=== PATIENT | female | born 1945 | race Caucasian/White ===

== ENCOUNTER → 2016-05-16 | Outpatient (CLI) | payer MEDICARE, MEDICAID ==
[~2016-05-16] MED LIST: ALBU6.7H IH; ASPI81TA42 PO; CALC1TAB93 PO; DICL25 PO; ESCI10TA PO; GABA-529 PO; GLIP2.5ER PO; LISI-662 PO; MOME17N NASAL; MONT10TA21 PO; OMEG1CAP12 PO; OMEP20 PO; PRAV40 PO; TRAM50TA4 PO
[2016-05-16 12:57] LABS: BASOPHILS % (AUTO) 0.5 % (0.0-2.0); EOSINOPHILS % (AUTO) 2.4 % (1.0-6.0); HEMATOCRIT 37.5 % (36-46); HEMOGLOBIN 12.2 g/dL (12.0-16.0); LYMPHOCYTES % (AUTO) 26.2 % (22.0-44.0); MEAN CORPUSCULAR HEMOGLOBIN 27.4 pg (26.0-34.0); MEAN CORPUSCULAR HGB CONC 32.6 G/dL (31.0-37.0); MEAN CORPUSCULAR VOLUME 84 fL (80-100); MONOCYTES # (AUTO) 0.6 K/uL (0.1-1.0); MONOCYTES % (AUTO) 8.2 % (2.0-9.0); NEUTROPHILS # (AUTO) 4.8 K/uL (1.8-7.7); NEUTROPHILS % (AUTO) 62.7 % (40.0-70.0); PLATELET COUNT (AUTO) 229 K/uL (150-450); RED BLOOD CELL COUNT(AUTO) 4.45 MIL/uL (4.00-5.20); WHITE BLOOD COUNT (AUTO) 7.6 K/uL (4.5-11.0)
[2016-05-16 13:07] LABS: HEMOGLOBIN A1C 6.3 % (4.5-6.2)
[2016-05-16 13:08] LABS: ALBUMIN 3.7 g/dL (3.4-5.0); BILIRUBIN,TOTAL 0.3 mg/dL (0.1-1.0); CALCIUM, TOTAL 9.5 mg/dL (8.8-10.5); CHOL/HDL RATIO 4.9 (3.9-5.7); CREATININE 0.92 mg/dL (0.60-1.30); POTASSIUM 4.4 mmol/L (3.5-5.1); TOTAL PROTEIN, SERUM 7.6 g/dL (6.4-8.2)
== END | disposition home or self-care (01) ==
LOC: LABPV 09:37
PROVIDERS: ATTEND Family Medicine
DX: E11.40 Type 2 diabetes mellitus with diabetic neuropathy, unspecified (principal); I10 Essential (primary) hypertension; D50.8 Other iron deficiency anemias; E78.4 Other hyperlipidemia
CPT/HCPCS: 82306; 83036

== ENCOUNTER → 2016-09-21 | Outpatient (CLI) | payer MEDICARE, MEDICAID | END | disposition home or self-care (01) | LOC: RADPV 10:23 | PROVIDERS: ATTEND Family Medicine | DX: G89.29 Other chronic pain (principal); I70.0 Atherosclerosis of aorta; R07.89 Other chest pain; S22.41XD Multiple fractures of ribs, right side, subsequent encounter for fracture with routine healing; X58.XXXD Exposure to other specified factors, subsequent encounter | CPT/HCPCS: 71101 ==

== ENCOUNTER → 2016-12-07 | Outpatient (CLI) | payer MEDICARE, MEDICAID | END | disposition home or self-care (01) | LOC: RADPV 14:30 | PROVIDERS: ATTEND Orthopaedic Surgery | DX: M17.0 Bilateral primary osteoarthritis of knee (principal); M25.861 Other specified joint disorders, right knee; M11.262 Other chondrocalcinosis, left knee; M11.261 Other chondrocalcinosis, right knee ==

== ENCOUNTER → 2017-03-09 | Outpatient (CLI) | payer MEDICARE, MEDICAID ==
[~2017-03-09] MED LIST changes: -PRAV40 PO; +PRAV40TA4 PO
[2017-03-09 10:03] LABS: BASOPHILS % (AUTO) 0.3 % (0.0-2.0); EOSINOPHILS % (AUTO) 1.9 % (1.0-6.0); HEMATOCRIT 40.3 % (36-46); LYMPHOCYTES # (AUTO) 1.6 K/uL (1.0-4.8); LYMPHOCYTES % (AUTO) 22.7 % (22.0-44.0); MEAN CORPUSCULAR HEMOGLOBIN 30.5 pg (26.0-34.0); MEAN CORPUSCULAR HGB CONC 34.7 G/dL (31.0-37.0); MEAN CORPUSCULAR VOLUME 88 fL (80-100); MONOCYTES # (AUTO) 0.6 K/uL (0.1-1.0); MONOCYTES % (AUTO) 8.1 % (2.0-9.0); NEUTROPHILS # (AUTO) 4.8 K/uL (1.8-7.7); PLATELET COUNT (AUTO) 235 K/uL (150-450); RED BLOOD CELL COUNT(AUTO) 4.58 MIL/uL (4.00-5.20); RED CELL DISTRIBUTION WIDTH 13.2 % (11.5-14.5); WHITE BLOOD COUNT (AUTO) 7.1 K/uL (4.5-11.0)
[2017-03-09 10:16] LABS: HEMOGLOBIN A1C 7.2 % (4.5-6.2)
[2017-03-09 10:36] LABS: ALBUMIN 3.8 g/dL (3.4-5.0); BILIRUBIN,TOTAL 0.5 mg/dL (0.1-1.0); CHOL/HDL RATIO 4.9 (3.9-5.7); POTASSIUM 4.3 mmol/L (3.5-5.1); TOTAL PROTEIN, SERUM 7.6 g/dL (6.4-8.2)
[2017-03-09 10:46] LABS: CREATININE 1.11 mg/dL (0.60-1.30)
[2017-03-10 15:45] LABS: CREATININE, URINE (mALB) 137.8 mg/dL (Not Estab.)
== END | disposition home or self-care (01) ==
LOC: LABPV 08:27
PROVIDERS: ATTEND Family Medicine
DX: I10 Essential (primary) hypertension (principal); E11.9 Type 2 diabetes mellitus without complications; E78.4 Other hyperlipidemia
CPT/HCPCS: 82043; 82570; 83036

== ENCOUNTER → 2017-10-31 | Outpatient (CLI) | payer MEDICARE, MEDICAID ==
[2017-10-31 11:46] LABS: BASOPHILS % (AUTO) 0.7 % (0.0-2.0); EOSINOPHILS % (AUTO) 3.3 % (1.0-6.0); HEMATOCRIT 40.7 % (36-46); HEMOGLOBIN 14.3 g/dL (12.0-16.0); LYMPHOCYTES # (AUTO) 1.9 K/uL (1.0-4.8); LYMPHOCYTES % (AUTO) 26.8 % (22.0-44.0); MEAN CORPUSCULAR HEMOGLOBIN 30.9 pg (26.0-34.0); MEAN CORPUSCULAR HGB CONC 35.2 G/dL (31.0-37.0); MEAN CORPUSCULAR VOLUME 88 fL (80-100); MONOCYTES # (AUTO) 0.7 K/uL (0.1-1.0); MONOCYTES % (AUTO) 10.2 % (2.0-9.0); NEUTROPHILS # (AUTO) 4.2 K/uL (1.8-7.7); PLATELET COUNT (AUTO) 207 K/uL (150-450); RED BLOOD CELL COUNT(AUTO) 4.62 MIL/uL (4.00-5.20); RED CELL DISTRIBUTION WIDTH 12.9 % (11.5-14.5)
[2017-10-31 11:56] LABS: ALBUMIN 3.8 g/dL (3.4-5.0); CALCIUM, TOTAL 9.6 mg/dL (8.8-10.5); CREATININE 1.01 mg/dL (0.60-1.30); MAGNESIUM 1.9 mg/dL (1.80-2.40); PHOSPHORUS 3.1 mg/dL (2.5-4.9); POTASSIUM 3.9 mmol/L (3.5-5.1)
[2017-10-31 12:09] LABS: APPEARANCE,URINE CLOUDY (CLEAR); BILIRUBIN,URINE NEGATIVE (NEGATIVE); GLUCOSE, URINE (UA) NEGATIVE (NEGATIVE); KETONES,URINE NEGATIVE (NEGATIVE); LEUKOCYTE ESTERASE ,URINE MODERATE (NEGATIVE); NITRATE,URINE NEGATIVE (NEGATIVE); OCCULT BLOOD,URINE NEGATIVE (NEGATIVE); PROTEIN,URINE NEGATIVE (NEGATIVE); UROBILINOGEN,URINE 0.2 mg/dL (<=1.0)
[2017-10-31 12:40] LABS: BACTERIA,URINE None Seen /HPF (None Seen); RBC,URINE None Seen /HPF (0-2); SQUAMOUS EPITHELIAL CELL,UR Moderate /LPF (None Seen)
[2017-10-31 12:44] LABS: HEMOGLOBIN A1C 6.9 % (4.5-6.2)
== END | disposition home or self-care (01) ==
LOC: LABPV 09:51
PROVIDERS: ATTEND Internal Medicine Nephrology
DX: I10 Essential (primary) hypertension (principal); E11.9 Type 2 diabetes mellitus without complications; M19.90 Unspecified osteoarthritis, unspecified site; D63.1 Anemia in chronic kidney disease; M81.0 Age-related osteoporosis without current pathological fracture; J45.909 Unspecified asthma, uncomplicated; Z79.899 Other long term (current) drug therapy
CPT/HCPCS: 82043; 82570; 83036; 83735; 87086

== ENCOUNTER → 2018-03-11 | Outpatient (CLI) | payer MEDICARE, MEDICAID | END | disposition home or self-care (01) | LOC: RADPV 15:22 | PROVIDERS: ATTEND Family Medicine | DX: M47.812 Spondylosis without myelopathy or radiculopathy, cervical region (principal) | CPT/HCPCS: 72040 ==

== ENCOUNTER 2018-09-26 14:57 | Emergency (ER) | payer MEDICARE, MEDICAID ==
[~2018-09-26] VITALS: Ht 157.5 cm; Wt 85.5 kg
[~2018-09-26 14:57] MED LIST changes: +ASPI81TA40 PO; -ASPI81TA42 PO
[2018-09-26 15:09] LABS: GLUCOSE,POINT OF CARE 168 MG/DL (70-110)
[2018-09-26] MEDS ORDERED: HYDR25TA PO (15:19)
[2018-09-26] MEDS ORDERED: GABA-531 PO (15:19)
[2018-09-26] MEDS ORDERED: HYAL1CAP PO (15:19)
[2018-09-26] MEDS ORDERED: SIMV-260 PO (15:19)
[2018-09-26] MEDS ORDERED: LORA10TA7 PO (15:19)
[2018-09-26] MEDS ORDERED: PANT40TA25 PO (15:19)
[2018-09-26] MEDS ORDERED: METF-960 PO (15:19)
[2018-09-26] MEDS ORDERED: ACET-66 PO (15:19)
[2018-09-26] MEDS ORDERED: FLUT16H NASAL (15:19)
[2018-09-26] MEDS ORDERED: VITA1CAP50 PO (15:20)
[2018-09-26] MEDS ORDERED: KETOROLAC TROMETHAMINE 30 MG/ML VIAL IM ONE (16:00)
[2018-09-26] MEDS ORDERED: LIDOCAINE 5% TRANSDERMAL PATCH TD ONE (16:00)
[2018-09-26 18:10] VITALS: BP 122/79
== END 2018-09-26 18:27 | disposition home or self-care (01) ==
LOC: EDUNIT# 14:57 → EMS 14:58
DX: M54.5 Low back pain (principal); R20.2 Paresthesia of skin; E11.9 Type 2 diabetes mellitus without complications; I10 Essential (primary) hypertension; J45.909 Unspecified asthma, uncomplicated; M81.0 Age-related osteoporosis without current pathological fracture; Z79.899 Other long term (current) drug therapy; Z79.82 Long term (current) use of aspirin
CPT/HCPCS: 72131; 82962; 96372; 99284; J1885

== ENCOUNTER 2018-11-20 20:52 | Emergency (ER) | payer MEDICARE, MEDICAID ==
[~2018-11-20] VITALS: Ht 162.6 cm; Wt 84.1 kg
[~2018-11-20 20:52] MED LIST changes: +ACET-66 PO; -ALBU6.7H IH; +FLUT16H NASAL; -GABA-529 PO; +GABA-531 PO; -GLIP2.5ER PO; +HYAL1CAP PO; +HYDR25TA PO; -LISI-662 PO; +LORA10TA7 PO; +METF-960 PO; -MOME17N NASAL; -MONT10TA21 PO; -OMEP20 PO; +PANT40TA25 PO; -PRAV40TA4 PO; +SIMV-260 PO; -TRAM50TA4 PO; +VITA1CAP50 PO
[2018-11-20] MEDS ORDERED: GLIP5 PO (21:11)
[2018-11-20] MEDS ORDERED: PIOG30TA10 PO (21:11)
[2018-11-20] MEDS ORDERED: TERB250 PO (21:11)
[2018-11-20] MEDS ORDERED: OXYB5 PO (21:11)
[2018-11-20] MEDS ORDERED: FESO4TAB PO (21:11)
[2018-11-20 21:53] VITALS: BP 135/89
[2018-11-20] MEDS ORDERED: MethylPREDNISolone SOD SUCC 125 MG/2 ML VIAL IM ONE (22:00)
== END 2018-11-20 22:22 | disposition home or self-care (01) ==
LOC: EMS 22:14
DX: R21 Rash and other nonspecific skin eruption (principal); J45.909 Unspecified asthma, uncomplicated; E11.9 Type 2 diabetes mellitus without complications; I10 Essential (primary) hypertension
CPT/HCPCS: 82962; 96372; 99283; J2930

== ENCOUNTER → 2022-08-01 | Outpatient (CLI) | payer MEDICARE, MEDICAID ==
[~2022-08-01] MED LIST changes: -ACET-66 PO; -ASPI81TA40 PO; -CALC1TAB93 PO; -DICL25 PO; +ESCI-8 PO; -ESCI10TA PO; +FESO4TAB PO; -FLUT16H NASAL; -GABA-531 PO; +GLIP5TAB12 PO; -HYAL1CAP PO; -HYDR25TA PO; -METF-960 PO; -OMEG1CAP12 PO; +OXYB5TAB20 PO; -PANT40TA25 PO; +PIOG30TA10 PO; -SIMV-260 PO; +TERB250T90 PO; -VITA1CAP50 PO
== END | disposition home or self-care (01) ==
LOC: RADMN 15:36
PROVIDERS: ATTEND Nurse Practitioner
DX: M19.071 Primary osteoarthritis, right ankle and foot (principal); M25.871 Other specified joint disorders, right ankle and foot; M79.89 Other specified soft tissue disorders
CPT/HCPCS: 73630-TC

== ENCOUNTER → 2022-08-17 | Outpatient (CLI) | payer MEDICARE, MEDICAID | END | disposition home or self-care (01) | LOC: RADMN 14:16 | PROVIDERS: ATTEND Nurse Practitioner | DX: M17.11 Unilateral primary osteoarthritis, right knee (principal); M85.861 Other specified disorders of bone density and structure, right lower leg; M25.761 Osteophyte, right knee; M25.561 Pain in right knee | CPT/HCPCS: 73562-TC ==

== ENCOUNTER 2023-06-06 14:02 | Emergency (ER) | payer MEDICARE, MEDICAID ==
[~2023-06-06] VITALS: Ht 149.9 cm; Wt 70.5 kg
[~2023-06-06 14:02] MED LIST changes: -GLIP5TAB12 PO; +GLIP5TAB16 PO
[2023-06-06 14:21] LABS: GLUCOMETER DEV NAME(LOC) ER.6; GLUCOSE,POINT OF CARE 119 MG/DL (70-110)
[2023-06-06 14:29] LABS: COVID AG,FIA SOURCE NASAL SWAB
[2023-06-06 14:51] LABS: BASOPHILS % (AUTO) 0.4 % (0.0-2.0); EOSINOPHILS % (AUTO) 0.3 % (1.0-6.0); HEMOGLOBIN 12.3 g/dL (12.0-16.0); LYMPHOCYTES # (AUTO) 2.8 K/uL (1.0-4.8); MEAN CORPUSCULAR HEMOGLOBIN 30.7 pg (26.0-34.0); MEAN CORPUSCULAR HGB CONC 33.2 G/dL (31.0-37.0); MEAN CORPUSCULAR VOLUME 93 fL (80-100); MONOCYTES # (AUTO) 1.2 K/uL (0.1-1.0); NEUTROPHILS % (AUTO) 66.3 % (40.0-70.0); PLATELET COUNT (AUTO) 318 K/uL (150-450); RED CELL DISTRIBUTION WIDTH 13.8 % (11.5-14.5); WHITE BLOOD COUNT (AUTO) 12.1 K/uL (4.5-11.0)
[2023-06-06 15:00] LABS: CALCIUM, TOTAL 10.7 mg/dL (8.8-10.5); CREATININE 1.01 mg/dL (0.60-1.30); POTASSIUM 3.9 mmol/L (3.5-5.1)
[2023-06-06 15:04] LABS: INFLUENZA TYPE A NEGATIVE FOR TYPE A (NEGATIVE); INFLUENZA TYPE B NEGATIVE FOR TYPE B (NEGATIVE); SARS-COV2 (COVID) ANTIGEN,FIA Negative (Negative)
[2023-06-06 15:06] LABS: ALBUMIN 3.3 g/dL (3.4-5.0); BILIRUBIN,TOTAL 0.5 mg/dL (0.1-1.0); TOTAL PROTEIN, SERUM 7.5 g/dL (6.4-8.2)
[2023-06-06 15:21] LABS: TROPONIN I-HIGH SENSITIVITY 8 ng/L (<51)
[2023-06-06] MEDS ORDERED: IOHEXOL 350 MG/ML 100 ML VIAL ONE (16:10)
[2023-06-06] MEDS ORDERED: SODIUM CHLORIDE 0.9% 100 ML ONE (16:10)
[2023-06-06] MEDS: MAG HYDROX/ALUMINUM HYD/SIMETH 30 ML SUSPENSION UDCUP PO ONE (16:56)
[2023-06-06] MEDS: FAMOTIDINE 20 MG/2 ML VIAL IVP ONE (16:56)
[2023-06-06] MEDS: SODIUM CHLORIDE 0.9% 1,000 ML IV ONE (16:56)
[2023-06-06 18:27] LABS: APPEARANCE,URINE CLEAR (CLEAR); BILIRUBIN,URINE NEGATIVE (NEGATIVE); COLOR,URINE LIGHT YELLOW (YELLOW); GLUCOSE, URINE (UA) >=1000 mg/dL (NEGATIVE); KETONES,URINE NEGATIVE (NEGATIVE); LEUKOCYTE ESTERASE ,URINE TRACE (NEGATIVE); OCCULT BLOOD,URINE NEGATIVE (NEGATIVE); PH,URINE 5.5 (5.0-8.0); PROTEIN,URINE NEGATIVE (NEGATIVE); SPECIFIC GRAVITIY, URINE 1.021 (1.003-1.030); UROBILINOGEN,URINE <=1.0 mg/dL (<=1.0)
[2023-06-06 19:03] LABS: BACTERIA,URINE Many /HPF (None Seen); NITRATE,URINE POSITIVE (NEGATIVE); RBC,URINE 0-2 /HPF (0-2); SQUAMOUS EPITHELIAL CELL,UR Moderate /LPF (None Seen)
[2023-06-06] MEDS ORDERED: CEPH-558 PO (19:25)
[2023-06-06] MEDS: CEPHALEXIN MONOHYDRATE 500 MG CAPSULE PO ONE (20:12)
[2023-06-06 20:14] VITALS: BP 122/69; PULSE 98; RESP 16; TEMP 97.9
== END 2023-06-06 20:16 | disposition home or self-care (01) ==
LOC: EMS 14:02
DX: N39.0 Urinary tract infection, site not specified (principal); R10.9 Unspecified abdominal pain; E11.9 Type 2 diabetes mellitus without complications; I10 Essential (primary) hypertension; J45.909 Unspecified asthma, uncomplicated; Z20.822 Contact with and (suspected) exposure to COVID-19
CPT/HCPCS: 99285; 74177; 96374; 71045; 96361; 87426; 80053; 81001; 82550; 82962; 83690; 83880; 84484; 85025; 87804; 36415; 87086; 87186; 93005; J3490; Q9967; J7030; J7050